=== PATIENT | male | born 1965 | race Caucasian/White ===

== ENCOUNTER 2018-10-29 19:15 | Emergency (ER) | payer OTHER ==
[~2018-10-29] VITALS: Ht 195.6 cm; Wt 117.9 kg
[~2018-10-29 19:15] MED LIST: ALBU90I INH; ANDROGEL2.5 GM TD; ANTOXYBENA LEFTEAR; AZIT250 PO; BUSP15 PO; BUSP5 PO; CIPDEXSU LEFTEAR; CLIN300 PO; CYCL10 PO; DIAZ5 PO; DULO30 PO; Guaifenesin-Co118 ML PO; HYDACE5 PO; HYDHCL25 PO; IBUP600 PO; IBUP800 PO; Imitrex100 MG PO; LEVO750 PO; META800 PO; METH10 PO; METH40 PO; MIGRELIEF CAPL1 EACH PO; NAPR500 PO; NAPR550 PO; Naprosyn500 MG PO; OXYACE5T PO; OXYACE7.5T PO; PROM25 PO; RXCYCL10 PO; RXHYDACE PO; RXOXYACE PO; SUBOXONE 8 MG-1 EACH SL; SULTRIDS PO; TRAM50 PO; Valium5 MG PO
== END 2018-10-29 21:27 | disposition home or self-care (01) ==
LOC: ER 19:15
DX: S61.210A Laceration without foreign body of right index finger without damage to nail, initial encounter (principal); W26.0XXA Contact with knife, initial encounter; Z87.891 Personal history of nicotine dependence
CPT/HCPCS: 12002; 73140; 90471; 90714; 99283-25

== ENCOUNTER 2020-07-05 19:49 | Emergency (ER) | payer OTHER ==
[~2020-07-05] VITALS: Ht 195.6 cm; Wt 111.1 kg
== END 2020-07-05 21:16 | disposition home or self-care (01) ==
LOC: ER 19:49
DX: R59.0 Localized enlarged lymph nodes (principal); Z87.891 Personal history of nicotine dependence
CPT/HCPCS: 99282

== ENCOUNTER 2020-09-02 23:40 | Emergency (ER) | payer OTHER | END 2020-09-03 00:39 | disposition left against medical advice (07) | LOC: ER 23:40 | DX: Z53.21 Procedure and treatment not carried out due to patient leaving prior to being seen by health care provider (principal) ==

== ENCOUNTER 2020-09-22 04:42 | Emergency (ER) | payer OTHER ==
[~2020-09-22] VITALS: Ht 195.6 cm; Wt 111.1 kg
== END 2020-09-22 06:36 | disposition home or self-care (01) ==
LOC: ER 04:42
DX: R07.89 Other chest pain (principal); S20.212A Contusion of left front wall of thorax, initial encounter; F17.210 Nicotine dependence, cigarettes, uncomplicated; X50.1XXA Overexertion from prolonged static or awkward postures, initial encounter
CPT/HCPCS: 71046; 96372; 99283-25; J1885

== ENCOUNTER 2020-10-28 10:51 | Emergency (ER) | payer OTHER ==
[~2020-10-28] VITALS: Ht 195.6 cm; Wt 86.2 kg
== END 2020-10-28 12:54 | disposition home or self-care (01) ==
LOC: ER 10:51
DX: S80.01XA Contusion of right knee, initial encounter (principal); S40.021A Contusion of right upper arm, initial encounter; F17.210 Nicotine dependence, cigarettes, uncomplicated; W20.8XXA Other cause of strike by thrown, projected or falling object, initial encounter
CPT/HCPCS: 73060; 73564; 99283-25; A9270